=== PATIENT | male | born 1970 | race Caucasian/White ===

== ENCOUNTER 2018-01-09 05:40 | Day surgery (SDC) | payer OTHER ==
[2018-01-08 15:24] LABS: HEMATOCRIT 48.4 % (42.0-54.0); HEMOGLOBIN 16.6 g/dL (13.5-17.5); MCH 30.2 pg (26.0-34.0); MCHC 34.3 g/dL (31.0-37.0); MEAN PLATELET VOLUME 10.9 fL (7.4-10.4); RBC 5.5 10x6/uL (4.20-6.10); RDW 13.5 % (11.5-14.5); WBC 5.9 10x3/uL (4.8-10.8)
[2018-01-08 15:43] LABS: CALC OSMOLALITY 285 mosm/kg (275-300); CALCIUM 9.2 mg/dL (8.5-10.1); CHLORIDE - SERUM 106 mmol/L (98-107); CREATININE - SERUM 1.1 mg/dL (0.6-1.3); GLUCOSE 73 mg/dL (74-106); POTASSIUM - SERUM 4.2 mmol/L (3.5-5.1); SODIUM 143 mmol/L (136-145); UREA NITROGEN 19 mg/dL (7-18); eGFR NON AFRICAN AMERICAN 77 mL/min (90-120)
[~2018-01-09] VITALS: Ht 180.3 cm; Wt 93.6 kg
--- NOTE | ~2018-01-09 | OP ---
PATIENT NAME: NENO ALMODOVAR MEDICAL RECORD: [id number] :74 LOCATION:[id number] ADMISSION DATE: SURGEON: MIKAELA GAMEZ MD DATE OF OPERATION: 01/09/2018 REFERRING PHYSICIAN: Gideon Marc MD PREOPERATIVE DIAGNOSIS: Right C7 radiculopathy secondary to disc herniation and osteophyte formation at C6-C7 on the right. PROCEDURE: Anterior cervical discectomy and fusion with Stephany bone allograft, PEEK interbody cage, separate Zavation Spine anterior cervical plate and screws, removal of osteophytes at C6-C7. SURGEON: Mikaela Gamez MD DESCRIPTION OF TECHNIQUE: After induction of general endotracheal anesthesia, the patient was positioned supine on the operating table. Neck was prepped and draped in usual sterile fashion. Fluoroscopic x-ray and freer localized the C6-C7 interspace. A transverse skin incision was carried out from the midline to the sternocleidomastoid muscle. The platysma was divided with Bovie cautery. Using blunt and sharp dissection with Metzenbaum scissors, I proceeded in the avascular plane medial to the carotid sheath. The C6-C7 interspace was identified with fluoroscopic x-ray and a spinal needle. The longus colli muscles were elevated from bodies of C6 and C7. A self-retaining retractor was placed deep to the longus colli muscles. [place] distracting pins were placed in the bodies of C6 and C7. The level was confirmed with fluoroscopic x-ray. A #11 blade was used to incise the annulus. The disc material was removed with pituitary rongeurs and curettes until bony endplate was encountered. Posteriorly, the posterior longitudinal ligament was removed with Cloward rongeurs. Osteophytes were drilled away posteriorly with microscope and Midas Jarett drill. Foraminotomies were carried out bilaterally with Cloward rongeurs. There was an obvious disc protrusion within the right C6-C7 foramen. This was removed with pituitary rongeurs. The foramen was further explored with a nerve hook and one small additional fragment was removed from the neural foramen. Following this, both nerve roots were decompressed well. Meticulous hemostasis was maintained throughout the wound. A PEEK interbody cage was placed in the disc space under distraction, 8 mm cage. Prior to this, this was filled with Stephany bone allograft. A 60 mm plate was used to span the C6-C7 interspace, 18 mm screws were used in the bodies of C6 and C7. Locking cams tightened down the screw heads. Good position of the hardware was confirmed with fluoroscopic x-ray. Meticulous hemostasis was maintained throughout the wound. The platysma was reapproximated with interrupted 3-0 Vicryl suture. The subdermal layer was closed with interrupted 3-0 Vicryl suture. The skin was reapproximated with Dermabond. A sterile dressing was applied to the wound. The patient was awakened in good condition and taken to recovery. All counts were reported as correct. Estimated blood loss was minimal. TRANSINT:[id number] Voice Confirmation ID: [id number] DOCUMENT ID: [id number] OPERATIVE REPORT [id number] NENO ALMODOVAR, MIKAELA CONNER at 0937 CC: [id number] DICTATION DATE: 01/09/18 1235 MANAGER STARS: 01/09/18 1258 [facility] [place] [id number] [place] [id number]
[2018-01-09 06:16] VITALS: BP 123/79; BMI 28.8
[2018-01-09] MEDS ORDERED: LIALDA1.2 G (06:16)
[2018-01-09 14:45] VITALS: BP 139/95; Ht 180.3 cm; Wt 93.6 kg
[2018-01-09 15:56] VITALS: BP 142/92
[2018-01-09 21:02] VITALS: BP 115/72
[2018-01-10 00:10] VITALS: BP 124/74
[2018-01-10 04:03] VITALS: BP 114/72
[2018-01-10 08:33] VITALS: BP 137/83
== END 2018-01-10 10:46 | disposition home or self-care (01) ==
LOC: D.MS 05:40 → D.OPS 05:40 → D.PAN 07:30 → D.OPS 07:30 → D.MS 14:01 → D.OPS 01-10 10:46
PROVIDERS: Anesthesiology
DX: M50.123 Cervical disc disorder at C6-C7 level with radiculopathy (principal); K21.9 Gastro-esophageal reflux disease without esophagitis; Z72.0 Tobacco use; Z01.812 Encounter for preprocedural laboratory examination; M25.78 Osteophyte, vertebrae

== ENCOUNTER → 2019-08-02 12:40 | Outpatient (CLI) | payer OTHER ==
[2018-01-09 14:45] VITALS: BMI 28.8
[~2019-08-02 12:40] MED LIST: LIALDA1.2 G
== END | disposition home or self-care (01) ==
LOC: D.NM 12:40
PROVIDERS: ATTEND Emergency Medicine
DX: R10.9 Unspecified abdominal pain (principal)